=== PATIENT | female | born 1950 | race Two or more races ===

== ENCOUNTER 2019-02-26 07:47 | Outpatient (CLI) | payer OTHER ==
[~2019-02-26 07:47] MED LIST: COZAAR100 MG PO; HYDROCHLOROTHIA25 MG PO; METFORMIN HCL500 MG PO
[2019-02-28] MEDS ORDERED: PERCOCET 5-3251 EACH PO (12:44)
== END 2019-02-26 08:22 | disposition home or self-care (01) ==
LOC: LAB 07:47
DX: E04.2 Nontoxic multinodular goiter (principal); E21.0 Primary hyperparathyroidism; D64.89 Other specified anemias; E11.9 Type 2 diabetes mellitus without complications; N39.0 Urinary tract infection, site not specified; E03.8 Other specified hypothyroidism; D68.8 Other specified coagulation defects

== ENCOUNTER → 2019-02-28 | Day surgery (SDC) | payer OTHER ==
[~2019-02-28] MED LIST changes: +PERCOCET 5-3251 EACH PO
== END | disposition home or self-care (01) ==
LOC: CIR.AMB
DX: D35.1 Benign neoplasm of parathyroid gland (principal)